=== PATIENT | male | born 1990 | race Caucasian/White ===

== ENCOUNTER 2019-01-31 09:26 | Day surgery (SDC) | payer OTHER ==
[~2019-01-31] VITALS: Ht 185.4 cm; Wt 94.8 kg
[~2019-01-31 09:26] MED LIST: AMBI5TAB PO; CETI-36 PO; LIDOCAINE 2% INJ 100 MG/5 ML SDV (FOR ANES.) As Ordered ONE; MEDROL DOSE PAK; NS 1,000 ML IV ONE; ONDA-1; PERC5TAB8; PROPOFOL 200 MG/20 ML VIAL As Ordered ONE; SALISOL7; SULF800T
--- NOTE | 2019-01-31 10:52 | ROOR ---
Patient Name: Luis Beatty Procedure Date: 01/31/2019 10:29 AM Date of : 1990 Age: 28 Room: [facility] Gender: Male Note Status: Finalized Procedure: Upper Endoscopy + Biopsies Indications: Hematemesis, Vomiting Providers: Sebastian Landaverde MD Referring MD: MATT MARTINEZ Requesting Provider: Medicines: Monitored Anesthesia Care Complications: No immediate complications. Procedure: Pre-Anesthesia Assessment: - The heart rate, respiratory rate, oxygen saturations, blood pressure, adequacy of pulmonary ventilation, and response to care were monitored throughout the procedure. The Endoscope was introduced through the mouth, and advanced to the second part of duodenum. The upper GI endoscopy was accomplished without difficulty. The patient tolerated the procedure well. Findings: The Z-line was irregular and was found 40 cm from the incisors. Multiple biopsies were obtained with cold forceps for evaluation to rule out Rock's Esophagus randomly at the gastroesophageal junction. A small hiatal hernia was present. Localized mildly erythematous mucosa without bleeding was found in the gastric antrum. Biopsies were taken with a cold forceps for Helicobacter pylori testing. Mucosal changes including feline appearance and longitudinal furrows were found in the mid esophagus. Biopsies were taken with a cold forceps for histology. The exam of the duodenum was otherwise normal. The exam was otherwise without abnormality. Impression: - Z-line irregular, 40 cm from the incisors. - Small hiatal hernia. - Erythematous mucosa in the antrum. Biopsied. - Esophageal mucosal changes suggestive of eosinophilic esophagitis. Biopsied. - The examination was otherwise normal. - Multiple biopsies were obtained at the gastroesophageal junction. - The examination was otherwise normal. Recommendation: - Await pathology results. - Repeat upper endoscopy for surveillance based on pathology results. - Use Prilosec (omeprazole) 40 mg PO daily. - Follow an antireflux regimen. - Await pathology results. - Telephone GI clinic for pathology results in 1 week. - Return to referring physician. - The findings and recommendations were discussed with the patient's family. Sebastian Landaverde MD Sebastian Landaverde MD 01/31/2019 10:52:13 AM Electronically signed by Sebastian Landaverde MD Number of Addenda: 0 Note Initiated On: 01/31/2019 10:29 AM Estimated Blood Loss: Estimated blood loss: none.
[2019-01-31 11:17] VITALS: BP 116/68
== END 2019-01-31 11:15 | disposition home or self-care (01) ==
LOC: M OPP 09:26
PROVIDERS: ATTEND Internal Medicine Gastroenterology
DX: K22.8 Other specified diseases of esophagus (principal); K44.9 Diaphragmatic hernia without obstruction or gangrene; K31.89 Other diseases of stomach and duodenum; K92.0 Hematemesis; R11.10 Vomiting, unspecified

== ENCOUNTER → 2019-06-13 | Outpatient (CLI) | payer OTHER ==
[~2019-06-13] MED LIST changes: -LIDOCAINE 2% INJ 100 MG/5 ML SDV (FOR ANES.) As Ordered ONE; -NS 1,000 ML IV ONE; -PROPOFOL 200 MG/20 ML VIAL As Ordered ONE
--- NOTE | 2019-06-13 15:09 | REP ---
CT paranasal sinuses: 06/13/2019. Indication: Sinusitis. Comparison: 03/26/2010. Technique: Axial unenhanced CT images were obtained through the paranasal sinuses with coronal reconstructions provided. Findings: Periosteal mucosal thickening is present throughout the right maxillary sinus with an air fluid level and minimal frothy secretions indicative of acute inflammation. There are foci of hyperattenuating tissue most consistent with inspissated mucous. Mild periosteal mucosal thickening is present within the left maxillary sinus. There is mild periosteal mucosal new thickening within the ethmoid air cells and sphenoid sinuses. There is soft tissue obstruction of the left sphenoethmoidal ostium. The OMCs show soft tissue obstruction as well. The frontal recesses appear patent. There is leftward deviation of the nasal septum. No significant ocular, intraorbital or intracranial abnormalities are detected. The mastoid air cells appear clear. Impression: Acute on chronic paranasal sinus mucosal disease as described most pronounced within the right maxillary sinus. Electronically Signed by Nate Louie DO 06/13/2019 03:00 P
== END ==
LOC: M RAD 14:12
PROVIDERS: ATTEND Otolaryngology
DX: J32.4 Chronic pansinusitis (principal)

== ENCOUNTER 2019-08-13 09:05 | Day surgery (SDC) | payer OTHER ==
[~2019-08-13] VITALS: Ht 182.9 cm; Wt 98.9 kg
[~2019-08-13 09:05] MED LIST changes: +IBUP-1114 PO; +LIDOCAINE 1% MDV 20ML VIAL SQ PRN; +LR 1,000 ML IV ONE
[2019-08-13] MEDS ORDERED: LIDOCAINE 2% INJ 100 MG/5 ML SDV (FOR ANES.) As Ordered ONE (09:48)
[2019-08-13] MEDS ORDERED: KETOROLAC 60 MG/2 ML VIAL (J1885) As Ordered ONE (09:48)
[2019-08-13] MEDS ORDERED: ROCURONIUM BROMIDE 50 MG/5 ML VIAL As Ordered ONE (09:48)
[2019-08-13] MEDS ORDERED: ONDANSETRON 4MG/2ML VIAL (J2405) As Ordered ONE ×2 (09:48→12:04)
[2019-08-13] MEDS ORDERED: PROPOFOL 200 MG/20 ML VIAL As Ordered ONE (09:48)
[2019-08-13] MEDS ORDERED: METHYLENE BLUE 0.5% (5MG/ML) 10 ML AMP (PROVAYBLUE)(Q9968 PER 1MG) As Ordered ONE (09:48)
[2019-08-13] MEDS ORDERED: fentaNYL 100 MCG/2 ML INJECTION (J3010) As Ordered ONE ×2 (09:49→12:05)
[2019-08-13] MEDS ORDERED: EPINEPHrine 1MG/ML INJ 30ML MD-VIAL As Ordered ONE (09:49)
[2019-08-13] MEDS ORDERED: LIDOCAINE W/EPINEPHRINE 1% 20ML VIAL As Ordered ONE (09:49)
[2019-08-13] MEDS ORDERED: MIDAZOLAM INJ 2 MG/2 ML VIAL (J2250) As Ordered ONE (09:49)
[2019-08-13] MEDS ORDERED: SUGAMMADEX SODIUM 500 MG/5 ML VIAL (BRIDION) As Ordered ONE (10:30)
[2019-08-13] MEDS ORDERED: HYDROmorphone HCL 2 MG/ML 1ML VIAL (J1170) As Ordered ONE (10:53)
[2019-08-13] MEDS ORDERED: LABETALOL HCL 100 MG/20 ML VIAL As Ordered ONE ×2 (11:13→13:10)
[2019-08-13] MEDS ORDERED: PERCOCET 5MG/325MG TAB As Ordered ONE (12:05)
[2019-08-13] MEDS: fentaNYL 100 MCG/2 ML INJECTION (J3010) IV PRN ×3 (12:10→12:20)
[2019-08-13] MEDS: PERCOCET 5MG/325MG TAB PO PRN ×4 (12:10→12:37)
[2019-08-13] MEDS ORDERED: ACETAMINOPH W/CODEINE #3 TAB UD PO PRN (12:15)
[2019-08-13] MEDS ORDERED: LR 1,000 ML IV SCH ×2 (12:15)
[2019-08-13] MEDS ORDERED: ONDANSETRON 4MG/2ML VIAL (J2405) IV PRN (12:15)
[2019-08-13] MEDS ORDERED: METOCLOPRAMIDE INJ 10MG/2ML VIAL (J2765) IV PRN (12:15)
[2019-08-13] MEDS: LABETALOL HCL 100 MG/20 ML VIAL IV SCH ×5 (13:15→13:46)
[2019-08-13 13:46] VITALS: BP 150/102
[2019-08-13 15:00] VITALS: BP 150/90
--- NOTE | 2019-08-14 13:23 | RO ---
DATE OF PROCEDURE: 08/13/2019 PREOPERATIVE DIAGNOSIS: Chronic sinusitis. POSTOPERATIVE DIAGNOSIS: Chronic sinusitis. OPERATIVE PROCEDURE: Bilateral polypectomies, antrostomies, ethmoidectomies and nasal frontal sinusotomy. SURGEON: Roberto Rosario MD TRAIN RESERVATION CLERK: ANESTHESIA: FINDINGS: There was polypoid tissue within the area from scarring from his previous surgery. DESCRIPTION OF PROCEDURE: Under general anesthesia with the patient intubated, the patient was draped in the usual manner. I used pledgets of adrenaline 1:1000, infiltrated with lidocaine and epinephrine. I started first on the right side. I removed the uncinate process and some polypoid tissue from the middle meatus. I then opened up the ethmoid air cells anterior and posterior. I did this in stages because there was more than the usual amount of bleeding. Attention was directed towards the opposite side where I did exactly the same. I came back then to the right side and then I opened up totally the posterior ethmoid air cells and then anteriorly from that end. There was a thick mucopus, possibly fungal, in the maxillary sinus, which I cleaned with irrigation and suction. It was very thick. Once this was done then I enlarged the natural sinus osteum. Lastly, I dissected anteriorly and superiorly to open the nasal frontal area. There was polypoid tissue here as well. The same procedure was performed on the left side, however there was no mucopus in the maxillary sinus. I enlarged that maxillary sinus osteum, opened the anterior posterior ethmoid cells as well as the nasal frontal area. The navigation system was used during the procedure to confirm my position. 100 mL of estimated blood loss. The patient tolerated the procedure well. PROPEL implants were placed in the osteomeatal complex area. The patient was extubated and transferred to the recovery room in excellent condition.
== END 2019-08-13 15:05 | disposition home or self-care (01) ==
LOC: M SDC 09:05
PROVIDERS: ATTEND Otolaryngology
DX: J32.9 Chronic sinusitis, unspecified (principal); J33.9 Nasal polyp, unspecified; F43.10 Post-traumatic stress disorder, unspecified; G47.30 Sleep apnea, unspecified; F32.9 Major depressive disorder, single episode, unspecified; Z79.899 Other long term (current) drug therapy; F17.290 Nicotine dependence, other tobacco product, uncomplicated; Z91.018 Allergy to other foods
CPT/HCPCS: 31267; 31276; 88305; C2625; J1170; J1885; J2250; J2405; J3010; Q9968

== ENCOUNTER → 2020-02-15 | Outpatient (CLI) | payer OTHER ==
[~2020-02-15] MED LIST changes: -LIDOCAINE 1% MDV 20ML VIAL SQ PRN; -LR 1,000 ML IV ONE
--- NOTE | 2020-02-16 10:21 | REP ---
MAXILLOFACIAL CT STUDY WITHOUT CONTRAST: HISTORY: Chronic sinusitis. Comparison study, June 13, 2019. There is also a comparison study from March 26, 2010. CT FINDINGS: On today's examination, there is essentially complete opacification of the right maxillary, right frontal, right sphenoid, and right ethmoid air cells. There is some remaining aeration in posterior ethmoid air cells and superiorly in the maxillary sinus on the right. There is mucosal thickening affecting the left sphenoid and ethmoid air cells. There is mucosal thickening affecting the left maxillary sinus. A patent nasoantral window is noted on the left. The right ostiomeatal complex is obscured by mucosal thickening. There appears to be ethmoid bullectomy change on the left. The nasal turbinate soft tissues are full on the right as well. It is difficult to exclude nasal polyp, although no definite polyp is noted. No bony erosive or destructive lesion is seen. No expansile changes are noted. IMPRESSION: Polysinusitis changes particularly right-sided, progressed since the prior study. Postsurgical changes are noted on the left. Electronically Signed by Ryan Jaffe MD 02/16/2020 10:36 A
== END ==
LOC: M RAD 12:20
PROVIDERS: ATTEND Otolaryngology
DX: J32.4 Chronic pansinusitis (principal)

== ENCOUNTER → 2023-10-17 | Outpatient (CLI) | payer OTHER | LOC: M RAD 07:38 | PROVIDERS: ATTEND Orthopaedic Surgery | DX: M25.511 Pain in right shoulder (principal) ==